=== PATIENT | female | born 1960 | race Caucasian/White ===

== ENCOUNTER 2018-08-11 15:04 | Inpatient (IN) | payer MEDICARE, MEDICAID ==
[~2018-08-11] VITALS: Ht 170.2 cm; Wt 63.5 kg
--- NOTE | 2018-08-11 16:58 | NUR ---
DR STEWARD AT BEDSIDE
--- NOTE | 2018-08-11 17:07 | NUR ---
KARSON FROM [facility] FOR PSYCHEVAL INCREASE HALLUCINATION, -SI/HI, "I AM THE CREATOR", TO ER BED 13, HOOKED TO MONITOR, CHANGED TO [facility], AWAITING MD ROJAS.
[2018-08-11 17:18] LABS: BASOPHILS # (AUTO) 0.1 /CMM (0.0-0.2); BASOPHILS % (AUTO) 1.1 % (0.0-2.0); EOSINOPHILS % (AUTO) 1.6 % (0.0-6.0); HEMATOCRIT 41 % (33-45); HEMOGLOBIN 14.1 g/dL (11.5-14.8); LYMPHOCYTES # (AUTO) 2.7 /CMM (0.8-4.8); LYMPHOCYTES % (AUTO) 35.4 % (20.0-44.0); MEAN CORPUSCULAR HGB CONC 34 g/dl (31.0-36.0); MEAN CORPUSCULAR VOLUME 90 fL (82-100); MONOCYTES # (AUTO) 0.9 /CMM (0.1-1.30); MONOCYTES % (AUTO) 11.2 % (2.0-12.0); NEUTROPHILS # (AUTO) 3.8 /CMM (1.8-8.9); NEUTROPHILS % (AUTO) 50.7 % (43.0-81.0); PLATELET COUNT (AUTO) 210 /CMM (150-450); RED BLOOD CELL COUNT(AUTO) 4.59 MIL/uL (4.0-5.2); WHITE BLOOD COUNT (AUTO) 7.6 K/uL (4.3-11.0)
[2018-08-11 17:34] LABS: ALANINE AMINOTRANSFERASE 20 U/L (12-78); ALBUMIN 3.1 g/dL (3.4-5.0); ALCOHOL, BLOOD < 3 mg/dL (0-0); ALKALINE PHOSPHATASE 49 U/L (46-116); ASPARTATE AMINOTRANSFERASE 21 U/L (15-37); BILIRUBIN,DIRECT 0.1 mg/dL (0.0-0.2); BILIRUBIN,TOTAL 0.2 mg/dL (0.2-1.0); CALCIUM, SERUM 8.6 mg/dL (8.5-10.1); CARBON DIOXIDE 32 mmol/L (21-32); CHLORIDE 103 mmol/L (98-107); CREATININE 0.6 mg/dL (0.6-1.3); GLUCOSE 90 mg/dL (74-106); SALICYLATE 3.8 mg/dL (2.8-20.0); SODIUM SERUM 141 mmol/L (136-145); TOTAL PROTEIN, SERUM 6.1 g/dL (6.4-8.2); UREA NITROGEN, BLOOD 9 mg/dL (7-18)
[2018-08-11 17:37] LABS: ACETAMINOPHEN < 5 ug/ml (10-30); POTASSIUM 2.8 mmol/L (3.5-5.1)
[2018-08-11] MEDS ORDERED: POTASSIUM CHLORIDE 20 MEQ TAB.PRT.SR PO ONE ×3 (18:00→19:14)
[2018-08-11] MEDS ORDERED: POTASSIUM CHLORIDE 20 MEQ TAB.PRT.SR PO SCH (18:30)
--- NOTE | 2018-08-11 19:00 | NUR ---
GOT GPS BED 219-1
--- NOTE | 2018-08-11 19:20 | NUR ---
URINE SAMPLE SENT TO LAB
--- NOTE | 2018-08-11 19:30 | NUR ---
REPORT GIVEN TO MARTÍNEZ CID OF [facility]
--- NOTE | 2018-08-11 19:32 | NUR ---
REPORT GIVEN TO KAVYA CID FOR [facility]
[2018-08-11 19:34] LABS: APPEARANCE,URINE Cloudy (CLEAR); BILIRUBIN,URINE SMALL (NEGATIVE); BLOOD, URINE Negative Ery/uL (NEGATIVE); COLOR,URINE Other (YELLOW); KETONES,URINE 40 (NEGATIVE); LEUKOCYTE ESTERASE ,URINE Large (NEGATIVE); NITRITE, URINE Negative (NEGATIVE); PROTEIN,URINE 30 mg/dl (NEGATIVE); UGLUCOSE Negative (NEGATIVE)
[2018-08-11 20:03] LABS: BACTERIA,URINE Moderate /HPF (None Seen); MUCUS,URINE Moderate /LPF (None Seen); RBC,URINE 0-2 /HPF (0-2); SQUAMOUS EPITHELIAL CELL,UR Moderate /HPF (None Seen); URINE AMORPHOUS URATE Moderate /HPF (None Seen); WBC,URINE 51-80 /HPF (0-3)
[2018-08-11 21:00] VITALS: BP 123/72
[2018-08-11] MEDS ORDERED: PALI234D IM (23:23)
[2018-08-11] MEDS ORDERED: ALBU18HF2 IH (23:23)
[2018-08-11] MEDS ORDERED: OLAN7.5T3 PO (23:23)
[2018-08-11] MEDS ORDERED: DEUT9TAB PO (23:23)
[2018-08-11] MEDS ORDERED: TEMAZEPAM 7.5 MG CAPSULE PO PRN (23:30)
[2018-08-11] MEDS ORDERED: LORAZEPAM 0.5 MG TABLET PO PRN (23:30)
[2018-08-11] MEDS ORDERED: MAG HYDROX/AL HYDROX/SIMETH 30 ML UDC PO PRN (23:30)
[2018-08-11] MEDS ORDERED: MAGNESIUM HYDROXIDE 30 ML UDC PO PRN (23:30)
--- NOTE | 2018-08-11 23:39 | NUR ---
GPS/TECHNICAL ASSISTANCE CONSULTANT NOTES: ADMITTED FROM [facility], ON 5149 HOLD, INITIALLY CAME FROM [facility]. PATIENT IS HOMELESS. CAME TO THE UNIT AROUND 2044 ACCOMPANIED BY ER STAFF [facility]IA [employer]. PER HOLD PATIENT STOLE FRUIT, NO CHARGES PRESSED. SHE IS DISORGANIZED AND DISORIENTED. PATIENT HAS NO MEANS TO PROVIDE FOOD, MCC OR CARE FOR HERSELF, UNABLE TO IDENTIFY PLAN FOR SAFETY, SHE WAS GRANDIOSE AND DELUSIONAL, STATING " I AM THE CREATOR." PLACED PATIENT IN BED, SHOWS NO S/S OF ANY DISTRESS/PAIN. RESPIRATION EVEN, BREATHING PATTERN NON-LABORED, NO APPARENT DISTRESS NOTED. PATIENT VERY UNCOOPERATIVE, CONFUSED, DISORIENTED, DISORGANIZED, UNKEMPT, DISHEVELED, SELECTIVELY MUTE, POOR HYGIENE, ABLE TO AMBULATE WITH ASSISTANCE DUE TO UNSTABLE GAIT. CONTINENT, REFUSED TO SIGN CONSENT, REFUSED TOTAL BODY ASSESSMENT, REFUSED PHOTO TAKEN, REFUSED FLU AND PNEUMONIA VACCINE. OFFERED FOOD BUT REFUSED. NO FAMILY/RELATIVE GIVEN TO NOTIFY ABOUT ADMISSION TO THE UNIT. MED RECON- NEEDS FOLLOW-UP IN AM. PATIENT HAS 1 MEDICINE/INHALER. BELONGINGS INVENTORIED AND CHECKED FOR CONTRABAND. BED LOCKED AND PLACED ON LOWER POSITION TO PREVENT FALL/INJURY. WILL CONTINUE TO MONITOR Q 15 MINS. FOR SAFETY AND BEHAVIOR.
[2018-08-12 08:00] VITALS: BP 104/66
[2018-08-12] MEDS: CEPHALEXIN MONOHYDRATE 250 MG CAPSULE PO SCH ×3 (09:10→17:31)
[2018-08-12] MEDS ORDERED: ALBUTEROL FS 2.5 MG/0.5 ML VIAL.NEB NEB PRN (13:30)
--- NOTE | 2018-08-12 14:48 | NUR ---
INITIAL DISCHARGE PLAN: Patient is homeless and will need SNF placement. SW will help form a safe and proper discharge in collaboration with MD.
[2018-08-12 16:00] VITALS: BP 110/65
--- NOTE | 2018-08-12 19:48 | NUR ---
OFFERED A SLEEPING PILL FOR LATER, STATED, " NO THANK YOU."
[2018-08-12 20:00] VITALS: BP 95/58
--- NOTE | 2018-08-12 21:39 | NUR ---
SEEN BY DR. BRICEÑO, WITH NEW ORDER, FOR DISCHARGE [facility] AT 12 PM, ASSISTED LIVING FACILITY.
[2018-08-12] MEDS: HALOPERIDOL 5 MG TABLET PO SCH (21:51)
[2018-08-12] MEDS: BENZTROPINE MESYLATE (1 MG) 1 MG TABLET PO SCH (21:51)
[2018-08-13 08:00] VITALS: BP 100/59
[2018-08-13 09:14] LABS: BASOPHILS # (AUTO) 0.1 /CMM (0.0-0.2); BASOPHILS % (AUTO) 1.2 % (0.0-2.0); EOSINOPHILS % (AUTO) 1.1 % (0.0-6.0); HEMATOCRIT 44 % (33-45); LYMPHOCYTES # (AUTO) 1.5 /CMM (0.8-4.8); MEAN CORPUSCULAR HGB CONC 34 g/dl (31.0-36.0); MEAN CORPUSCULAR VOLUME 89 fL (82-100); MONOCYTES # (AUTO) 0.5 /CMM (0.1-1.30); MONOCYTES % (AUTO) 10.3 % (2.0-12.0); NEUTROPHILS # (AUTO) 2.7 /CMM (1.8-8.9); NEUTROPHILS % (AUTO) 56.4 % (43.0-81.0); PLATELET COUNT (AUTO) 191 /CMM (150-450); RED BLOOD CELL COUNT(AUTO) 4.96 MIL/uL (4.0-5.2); WHITE BLOOD COUNT (AUTO) 4.7 K/uL (4.3-11.0)
[2018-08-13] MEDS: BENZTROPINE MESYLATE (1 MG) 1 MG TABLET PO SCH ×2 (09:17→20:34)
[2018-08-13] MEDS: HALOPERIDOL 5 MG TABLET PO SCH ×2 (09:17→20:34)
[2018-08-13] MEDS: CEPHALEXIN MONOHYDRATE 250 MG CAPSULE PO SCH ×3 (09:17→17:05)
[2018-08-13 09:31] LABS: ALBUMIN 3.2 g/dL (3.4-5.0); BILIRUBIN,TOTAL 0.3 mg/dL (0.2-1.0); CALCIUM, SERUM 8.9 mg/dL (8.5-10.1); CREATININE 0.6 mg/dL (0.6-1.3); POTASSIUM 3.9 mmol/L (3.5-5.1); TOTAL PROTEIN, SERUM 6.4 g/dL (6.4-8.2)
--- NOTE | 2018-08-13 13:02 | NUR ---
GPS/RN-NOTES NOTED PATIENT SITTING ON THE FLOOR IN THE ROOM. STATED" I DON'T LIKE SNAKE, I DON'T LIKE SNAKE VENOM". REASSURED AND REORIENTED PATIENT. ENCOURAGE PATIENT TO ATTEND [employer] AND VERBALIZE FELLING TO THE STAFF,BUT PATIENT PREFERS TO STAY IN THE ROOM.WILL CONT. MONITORING Q15 MINS. FOR SAFETY AND BEHAVIOR.
[2018-08-13 16:00] VITALS: BP 107/56
[2018-08-13 20:00] VITALS: BP 95/50
[2018-08-14 08:00] VITALS: BP 100/62
[2018-08-14] MEDS: CEPHALEXIN MONOHYDRATE 250 MG CAPSULE PO SCH ×3 (08:19→16:24)
[2018-08-14] MEDS: BENZTROPINE MESYLATE (1 MG) 1 MG TABLET PO SCH ×2 (08:19→21:33)
[2018-08-14] MEDS: HALOPERIDOL 5 MG TABLET PO SCH ×2 (08:19→21:33)
[2018-08-14 13:00] VITALS: BP 98/60
[2018-08-14 16:00] VITALS: BP 98/60
[2018-08-14 20:00] VITALS: BP 103/63
[2018-08-15 08:00] VITALS: BP 108/65
[2018-08-15] MEDS: HALOPERIDOL 5 MG TABLET PO SCH ×2 (08:21→21:00)
[2018-08-15] MEDS: BENZTROPINE MESYLATE (1 MG) 1 MG TABLET PO SCH ×2 (08:21→21:00)
[2018-08-15] MEDS: CEPHALEXIN MONOHYDRATE 250 MG CAPSULE PO SCH ×3 (08:21→16:00)
[2018-08-15] MEDS: ACETAMINOPHEN 325 MG TABLET PO PRN (15:59)
[2018-08-15 16:00] VITALS: BP 111/76
--- NOTE | 2018-08-15 19:30 | NUR ---
GPS RN NOTE, RECEIVED PATIENT AWAKE AND IN ROOM NO S/S OR COMPLAINTS OF PAIN AT THIS TIME. PATIENT IS DISPLAYING NO S/S OF APPARENT DISTRESS AT THIS TIME. PATIENT BREATHING IS UNLABORED WITH EQUAL RISE AND FALL OF THE CHEST. PATIENT IS ALERT AND ORIENTED X 1 ON ROOM AIR WITH A SPO2 OF 97%. PATIENT IS MED COMPLIANT, DISORGANIZED, ANXIOUS, LABILE, COOPERATIVE, AND NEEDS REORIENTATION. PATIENT DENIES SUICIDE AND HOMICIDAL IDEATIONS AT THIS TIME. PATIENT ASSISTED WITH TURNING AND REPOSITIONING Q2HR AND PRN FOR COMFORT AND CIRCULATION. PATIENT HAS NO NEEDS AT THIS TIME. PATIENT EDUCATED ON THE USE OF THE CALL CHEATHAM. PATIENT BED SIDE RAILS ARE UP X 2 FOR SAFETY, BED IS LOCKED AND LOW. WILL CONTINUE TO MONITOR AND MAINTAIN SAFETY Q15 MIN WITH THE HELP OF STAFF.
--- NOTE | 2018-08-15 21:00 | NUR ---
GPS RN NOTE, PATIENT REFUSED COGENTIN 1 MG PO Q12HR, AND REFUSED HALDOL 5 MG PO Q12HR. OFFERED COGENTIN AND HALDOL THREE TIMES AND STILL PATIENT REFUSED STATING, " LEAVE ME ALONE AND GET OUT ". EDUCATED THIS PATIENT ON THE RISKS AND BENEFITS OF TAKING AND REFUSING AFOREMENTIONED MEDICATION. WILL CONTINUE MONITOR THIS PATIENT.
[2018-08-15 21:12] VITALS: BP 114/67
[2018-08-16 08:00] VITALS: BP 100/58
[2018-08-16] MEDS: CEPHALEXIN MONOHYDRATE 250 MG CAPSULE PO SCH ×3 (08:45→16:51)
[2018-08-16] MEDS: HALOPERIDOL 5 MG TABLET PO SCH (08:45)
[2018-08-16] MEDS: BENZTROPINE MESYLATE (1 MG) 1 MG TABLET PO SCH (08:45)
--- NOTE | 2018-08-16 14:16 | NUR ---
SUPPORTIVE COUNSELING: SW spoke with pt regarding her plan for discharge, pt wants to leave the hospital as soon as possible. Pts insight into her mental illness is poor. Pt remains delusional and paranoid and is restless. Pt informed SW that she has been implanted with radiation and that is why she cannot stay still. SW asked pt where she would like to be discharge to and pt was unable to provide SW with a safe plan for discharge.
--- NOTE | 2018-08-16 14:27 | NUR ---
SNF REFERRALS: SW faxed SNF referrals to Jennifer, diabetes education coordinator at [facility] Address: [address], [place] [address] and Veronica diabetes education coordinator at [facility] Address: [address] [place] [address] for review.
[2018-08-16 16:00] VITALS: BP 137/61
[2018-08-16 20:44] VITALS: BP 186/61
--- NOTE | 2018-08-17 02:00 | NUR ---
GPS NOTE RECEIVED PATIENT SLEEPINH AND IN ROOM. PATIENT IS DISPLAYING NO S/S OF APPARENT DISTRESS AT THIS TIME. PATIENT BREATHING IS UNLABORED WITH SYMMETRICAL RISE AND FALL OF THE CHEST. PATIENT ASSISTED WITH TURNING AND REPOSITIONING Q2HR AND PRN FOR COMFORT AND CIRCULATION. PATIENT HAS NO NEEDS AT THIS TIME. PATIENT BED SIDE RAILS ARE UP X 2 FOR SAFETY, BED IS LOCKED AND LOW. WILL CONTINUE TO MONITOR AND MAINTAIN SAFETY Q15 MIN WITH THE HELP OF STAFF.
[2018-08-17 08:00] VITALS: BP 100/69
--- NOTE | 2018-08-17 08:21 | NUR ---
SNF REFERRAL UPDATE: SW received a call from Veronica utilization coordinator at [facility] Address: [address], [place] [address] stating pt was not accepted due to not having any SNF MEDICARE days available.
--- NOTE | 2018-08-17 08:23 | NUR ---
SNF REFERRAL: SW faxed SNF referral to CJ, bed placement coordinator at [facility] Address: [address] [place] [address] for review.
[2018-08-17] MEDS: HALOPERIDOL 5 MG TABLET PO SCH ×3 (09:02→16:15)
[2018-08-17] MEDS: BENZTROPINE MESYLATE (1 MG) 1 MG TABLET PO SCH ×3 (09:02→16:15)
[2018-08-17] MEDS: CEPHALEXIN MONOHYDRATE 250 MG CAPSULE PO SCH ×3 (09:02→16:15)
--- NOTE | 2018-08-17 11:51 | NUR ---
SW received a call from Brii, admission coordinator at [facility][1] Address: [address] [place] [phone] stating pt has been accepted to the facility.
[2018-08-17 16:00] VITALS: BP 91/50
[2018-08-17 19:55] VITALS: BP 82/43
[2018-08-18 08:00] VITALS: BP 90/50
[2018-08-18] MEDS: CEPHALEXIN MONOHYDRATE 250 MG CAPSULE PO SCH ×2 (08:30→12:02)
[2018-08-18] MEDS: HALOPERIDOL 5 MG TABLET PO SCH ×3 (08:30→16:25)
[2018-08-18] MEDS: BENZTROPINE MESYLATE (1 MG) 1 MG TABLET PO SCH ×3 (08:30→16:25)
[2018-08-18 16:00] VITALS: BP 133/59
[2018-08-18 20:14] VITALS: BP 84/51
[2018-08-18] MEDS: SERTRALINE HCL 50 MG TABLET PO SCH (21:00)
[2018-08-19 08:00] VITALS: BP 100/59
[2018-08-19] MEDS: BENZTROPINE MESYLATE (1 MG) 1 MG TABLET PO SCH ×3 (08:36→16:58)
[2018-08-19] MEDS: HALOPERIDOL 5 MG TABLET PO SCH ×3 (08:36→16:58)
[2018-08-19] MEDS: SERTRALINE HCL 50 MG TABLET PO SCH (08:36)
--- NOTE | 2018-08-19 13:01 | NUR ---
Pt has intermittently came to social work and requested to be discharged to the streets. geriatric social worker spoke with pt regarding safety and proper discharge. Pt is still under her 14 day hold and no discharge date has been identified at this time. Social work informed pt that she has been accepted to [facility] Address: [address] [place] [id number] . Pt stated she understood and was willing to go to facility. Pt then returned again and stated she wanted to be discharged to the street, social work attempted to re-direct to possible [facility] placement however pt is requesting to be released to the [facility]. Social work again educated pt on hold procedure and process for MD to indicate discharge date, social work will speak with pt closer to discharge date.
--- NOTE | 2018-08-19 15:46 | NUR ---
Social Work: Pt returned to speak with adoption social worker. Pt stated that she is suicidal and wants to harm herself. social worker masters asked pt what had led her to feel suicidal and pt responded with I dont know adoption social worker asked if pt had a plan, pt responded with I dont want to hurt anyone I dont want to hurt myself. Pt stated that she thinks it is all the medication she has been taking that has been making her think evil things. Social work encouraged patient to speak with psychiatrist regarding SI thoughts and review of medication. Social work asked pt if she has active SI and HI pt stated no. Social work will continue to monitor pt.
[2018-08-19 16:00] VITALS: BP 108/65
[2018-08-19 20:00] VITALS: BP 97/55
[2018-08-20 08:00] VITALS: BP 99/59
[2018-08-20] MEDS: SERTRALINE HCL 50 MG TABLET PO SCH (08:07)
[2018-08-20] MEDS: HALOPERIDOL 5 MG TABLET PO SCH ×3 (08:07→16:00)
[2018-08-20] MEDS: BENZTROPINE MESYLATE (1 MG) 1 MG TABLET PO SCH ×3 (08:08→16:00)
--- NOTE | 2018-08-20 10:02 | NUR ---
SNF REFERRAL: [employer] faxed Snf referral to [facility] Attention: Veronica Address: [address], [place], [place] [address] ,
--- NOTE | 2018-08-20 10:35 | NUR ---
SW received a call from Veronica, admissions gate attendant at [facility] Address: [address] [facility], [place] [address] and fax [phone] stating pt was not accepted. Sw will contact pt's physician for further placement options.
--- NOTE | 2018-08-20 10:36 | NUR ---
SNF REFERRAL: collection systems worker faxed referral packet to [facility] Attention to CHIARA Fonseca or Giorgi Address: [address] [facility], [place] [address]
--- NOTE | 2018-08-20 11:56 | NUR ---
Social Work: Substance Abuse/Chemical Dependency assessment has been completed and filed in pts case since 08/16/18.
--- NOTE | 2018-08-20 11:58 | NUR ---
Social Work: Pt has signed choice of vendor form, original paperwork filed in pts chart.
[2018-08-20 16:00] VITALS: BP 104/62
[2018-08-21 08:00] VITALS: BP 94/57
[2018-08-21] MEDS: HALOPERIDOL 5 MG TABLET PO SCH ×3 (08:55→17:15)
[2018-08-21] MEDS: BENZTROPINE MESYLATE (1 MG) 1 MG TABLET PO SCH ×3 (08:56→17:15)
[2018-08-21] MEDS: SERTRALINE HCL 50 MG TABLET PO SCH (08:56)
[2018-08-21 16:20] VITALS: BP 99/95
[2018-08-21 20:00] VITALS: BP 113/55
[2018-08-21 23:00] VITALS: BP 118/64
[2018-08-22 08:00] VITALS: BP 113/59
[2018-08-22] MEDS: BENZTROPINE MESYLATE (1 MG) 1 MG TABLET PO SCH ×3 (08:30→16:11)
[2018-08-22] MEDS: SERTRALINE HCL 50 MG TABLET PO SCH (08:30)
[2018-08-22] MEDS: HALOPERIDOL 5 MG TABLET PO SCH ×3 (08:30→16:11)
[2018-08-22 16:00] VITALS: BP 120/66
[2018-08-22 19:39] VITALS: BP 90/55
[2018-08-22 23:00] VITALS: BP 105/62
[2018-08-23] MEDS: BENZTROPINE MESYLATE (1 MG) 1 MG TABLET PO SCH ×3 (08:46→16:07)
[2018-08-23] MEDS: SERTRALINE HCL 50 MG TABLET PO SCH (08:46)
[2018-08-23] MEDS: HALOPERIDOL 5 MG TABLET PO SCH ×3 (08:46→16:07)
[2018-08-23 08:54] VITALS: BP 109/55
[2018-08-23 16:00] VITALS: BP 107/60
[2018-08-23 19:47] VITALS: BP 88/56
[2018-08-23] MEDS: ACETAMINOPHEN 325 MG TABLET PO PRN (21:26)
[2018-08-24 08:11] VITALS: BP 106/60
[2018-08-24] MEDS: HALOPERIDOL 5 MG TABLET PO SCH (08:27)
[2018-08-24] MEDS: BENZTROPINE MESYLATE (1 MG) 1 MG TABLET PO SCH (08:27)
[2018-08-24] MEDS: SERTRALINE HCL 50 MG TABLET PO SCH (08:27)
--- NOTE | 2018-08-24 12:20 | NUR ---
GPS DISCHARGE NOTE: PT DISCHARGE TO [address] [address]. PT IN STABLE CONDITION , VSS , NO S/S DISTRESS NOTED. PT AMBULATORY , SELF CARE, DENIES SI/HI, DENIES C/O PAIN OR DISCOMFORT. EXIT CARE DONE PRINTED, SIGN, AND GIVEN TO PT. ALL BELONGINGS RETURNED TO PT, PT REFUSED SKIN ASSESSMENT , ALL BELONGINGS RETURNED.
--- NOTE | 2018-08-24 13:32 | NUR ---
DISCHARGE NOTE: Pt will be discharged at 12:30pm via [facility] ambulance trip #[phone] to [facility] Address: [address] [place] [address] . No family to notify. Pts mood was euthymic with congruent affect. Pt denied visual/auditory hallucinations and denied suicidal/homicidal ideation. Patient will address her substance use and continue psychiatric treatment with Psychiatrist: Dr. Marlin Babb [address], [place] [address] [phone] and be under the medical care of Guide Cruise: Dr. Dario Pratt [address] [facility] [address], [place] [address] [phone]. The multidisciplinary exitcare form was done, printed, signed, and given to the patient.
== END 2018-08-24 12:15 | DRG 881 ==
LOC: ER 15:17 → GPS 20:25
PROVIDERS: ADMIT Psychiatry & Neurology Psychiatry; ATTEND Nurse Practitioner Acute Care
DX: F32.9 Major depressive disorder, single episode, unspecified (principal); N39.0 Urinary tract infection, site not specified; E44.0 Moderate protein-calorie malnutrition; F20.9 Schizophrenia, unspecified; E87.6 Hypokalemia; Z73.6 Limitation of activities due to disability; Z79.51 Long term (current) use of inhaled steroids; Z79.899 Other long term (current) drug therapy; J45.909 Unspecified asthma, uncomplicated; B96.89 Other specified bacterial agents as the cause of diseases classified elsewhere; Z59.0 Homelessness; J44.9 Chronic obstructive pulmonary disease, unspecified
CPT/HCPCS: 36415; 80048-TC; 80053-TC; 80061-TC; 80076-TC; 80305; 81000-TC; 83735-TC; 85025-TC; 87081-TC; 87086-TC; G0480